=== PATIENT | male | born 1955 | race Caucasian/White ===

== ENCOUNTER 2019-11-27 13:30 | Outpatient (CLI) | payer BC, SELFPAY ==
--- NOTE | 2019-11-27 10:40 | DI.US_ITS ---
EXAM: US LOWER EXTREMITY VENOUS RT CLINICAL HISTORY: RT CALF PAIN, SWELLING X 2 WEEKS, ? DVT, ? POPLITEAL CYST TECHNIQUE: Ultrasound performed using standard protocol. COMPARISON: No exams were available for comparison FINDINGS: There is hypoechoic thrombus extending from the mid right femoral vein inferiorly through the poplite al vein and into the posterior tibialis vein. The saphenofemoral junction is unremarkable. IMPRESSION: Right lower extremity deep venous thrombus extending from the femoral vein into the posterior tibiali s vein. The findings were discussed with the primary care physician on the date of the examination.
== END 2019-11-27 13:50 ==
PROVIDERS: PCP Internal Medicine; Visit Provider Specialist/Technologist Athletic Trainer
DX: M79.661 Pain in right lower leg (principal); R22.41 Localized swelling, mass and lump, right lower limb; I82.411 Acute embolism and thrombosis of right femoral vein; I82.441 Acute embolism and thrombosis of right tibial vein
CPT/HCPCS: 93971

== ENCOUNTER 2020-01-13 09:38 | Outpatient (CLI) | payer MEDICARE, BC, SELFPAY ==
[2020-01-13 16:51] LABS: INR 1.2 Ratio (0.9-1.1); PTT (UVM) 36 secs (26-37)
[2020-01-13 17:12] LABS: D-Dimer (UVM) <200 ng/mL DDU (<=230)
[2020-01-14 09:37] LABS: Antithrombin 3, Funct. 108 % (85-125)
[2020-01-14 09:42] LABS: PSA, Screening 0.8 ng/mL (0.0-4.5)
[2020-01-15 10:42] LABS: Protein C, Functional 92 % (71-199); Protein S, Functional 144 % (73-156)
[2020-01-16 14:07] LABS: LA Cascade Summary (See Note); Silica Clotting Time 45.2 secs (30.2-48.4)
[2020-01-17 16:21] LABS: LA Confirm 60.9 secs (25.1-30.2)
[2020-01-17 16:32] LABS: LA Ratio 0.88 (<=1.16)
== END 2020-01-13 09:58 ==
PROVIDERS: PCP Internal Medicine; Visit Provider Specialist/Technologist Athletic Trainer
DX: I82.90 Acute embolism and thrombosis of unspecified vein (principal); Z12.5 Encounter for screening for malignant neoplasm of prostate
CPT/HCPCS: 36415; 81240; 81241; 84153; 85300; 85303; 85306; 85610; 85613; 85730; 85732; 86147; 85240; 85379

== ENCOUNTER 2022-10-11 18:06 | Outpatient (REF) | payer MEDICARE, BC, SELFPAY ==
[2022-10-11 15:20] LABS: Calculated LDL 148 mg/dL (<100); Cholesterol 230 mg/dL (<200); Glucose 103 mg/dL (74-106); HDL Cholesterol 66 mg/dL (40-60); Triglyceride 83 mg/dL (<150)
== END 2022-10-11 18:07 | disposition home or self-care (01) ==
LOC: NCHCN 18:06
PROVIDERS: PCP Internal Medicine; Visit Provider Family Medicine
DX: Z00.00 Encounter for general adult medical examination without abnormal findings (principal)
CPT/HCPCS: 80061; 82947

== ENCOUNTER 2024-10-09 09:56 | Outpatient (REF) | payer MEDICARE, BC, SELFPAY ==
--- OUTSIDE RECORDS SUMMARY | 2024-10-09 10:00 | XMS_ITS | Encounter Summary ---
[place] [address] Care Team Providers Care Other Sports Coach Or Instructor Name Role Phone Baldemar Oneil MD Primary Care Provider [phone] Encounter Details Date Type Department Care Team (Late st Contact Info) Description 07/16/2024 Interpretation Only [facility] in [facility] [address] [place] [address] Marilou Navas PA [address] [place] [address] Social History Tobacco Use Types Packs/Day Years Used Date Smoking Tobacco: Never Smokeless Tobacco: Never Alcohol Use Standard Drinks/Week Comments Yes 0 (1 standard drink = 0.6 oz pur e alcohol) occ Sex and Gender Information Value Date Recorded Sex Assigned at Not on file Gender Identity Not on file Sexual Orientation Not on file documented as of this encounter Plan of Treatment Not on file documented as of this encounter Procedures Procedure Name Priority Date/Time Associated Diagnosis Comments MRI LOWER EXTREMITY JOINT WO CONTRAST RIGHT Routine 07/16/2024 8:38 AM EDT documented in this encounter Results * MRI LOWER EXTREMITY JOINT WO CONTRAST RIGHT (07/16/2024 8:38 AM EDT) PT CLASS O RAD ADMITDTTM [id number] RAD PT RAD INFO [id number]^WENNBE RG^MARILOU^D RAD EXAM DESC MRLEJWOR^MR LOWER EXT ANY JOINT RT WO CONTRAST^RIS [facility] WORKSTATION ID [id number] [facility] Anatomical Region Laterality Modality Other Impressions 07/17/2024 12:26 PM EDT 1. ??Medial meniscus posterior horn partial-thickness radial tear with no meniscal extrusion. ??The lateral meniscus is intact. 2. ??Semimembranosus ganglion cysts 3. ??Grade 1 MCL sprain. 4. ??Small joint effusion 5. ??Mild patellofemoral and lateral compartments chondromalacia. 6. ??Multifocal muscle strains. Thank you for letting us participate in the care of this patient. ??If you are a health care provider and have any questions regarding this report, please contact the number below. ??For patients who have questions please contact the health pet caretaker that requested your imaging first. ? Electronically signed by: Felix Kamara MD, [facility] ([phone]), at 07/17/2024 12:26 PM Narrative 07/17/2024 12:26 PM EDT EXAMINATION: MR LOWER EXT ANY JOINT RT WO CONTRAST CLINICAL HISTORY: REASON: RIGHT KNEE PAIN, UNSPECIFIED CHRONICITY ADD'L INFO: ?? NO PA REQ TECHNIQUE: Unenhanced multisequence and multiplanar MRI examination of the right lower extremity. COMPARISON: Bilateral knee radiographs 05/28/2024. FINDINGS: ACL: Intact. ??Subcortical T2 hyperintense signal in the proximal tibia near the ACL insertion. ??Intraosseous ganglion cysts PCL: Intact MCL: Intact.Periligamentous edema of the MCL consistent with a grade 1 sprain LCL: Intact Medial Meniscus: Intact. ??There is a partial-thickness radial tear in medial meniscus posterior horn (series 15 image 11, series 8 image 16). ??No meniscal extrusion. Lateral Meniscus: Intact Extensor Mechanism: Tendons, patellofemoral retinacula and iliotibial band are intact. Posterolateral Corner: Intact Posteromedial Corner: Intact. ??Tiny Gardner cyst. ??There is a small multilobulated fluid collection intimately associated with the semimembranosus tendon myotendinous junction in keeping with a ganglion cyst measuring 16 x 4 mm (Series 8 Image 18) Bone: Intact with normal marrow signal. Cartilage: Patellofemoral: Mild chondral thinning and surface fibrillation. ?? Medial: Intact Lateral: Surface chondral fibrillation of the weightbearing articular cartilage There is low signal intensity in the tibial plateau cartilage compatible with chondral degeneration. ?? Tibiofibular: Intact Effusion: Small knee effusion. ?? Muscle: Normal bulk. ??There is feathery edema of soleus and medial head gastrocnemius, in keeping with a grade 1 strain. Neurovascular Structures: Normal course, caliber and signal. Procedure Note Felix Kamara MD - 07/17/2024 EXAMINATION: MR LOWER EXT ANY JOINT RT WO CONTRAST CLINICAL HISTORY: REASON: RIGHT KNEE PAIN, UNSPECIFIED CHRONICITY ADD'LINFO: NO PA REQ TECHNIQUE: Unenhanced multisequence and multiplanar MRI examination of the rightlower extremity. COMPARISON: Bilateral knee radiographs 05/28/2024. FINDINGS: ACL: Intact. Subcortical T2 hyperintense signal in the proximal tibianear the ACL insertion. Intraosseous ganglion cysts PCL: Intact MCL: Intact.Periligamentous edema of the MCL consistent with a grade 1sprain LCL: Intact Medial Meniscus: Intact. There is a partial-thickness radial tear inmedial meniscus posterior horn (series 15 image 11, series 8 image 16). Nomeniscal extrusion. Lateral Meniscus: Intact Extensor Mechanism: Tendons, patellofemoral retinacula and iliotibial bandare intact. Posterolateral Corner: Intact Posteromedial Corner: Intact. Tiny Gardner cyst. There is a smallmultilobulated fluid collection intimately associated with the semimembranosus tendon myotendinous junction in keeping with a ganglion cyst measuring 16 x 4mm (Series 8 Image 18) Bone: Intact with normal marrow signal. Cartilage: Patellofemoral: Mild chondral thinning and surface fibrillation. Medial: Intact Lateral: Surface chondral fibrillation of the weightbearing articularcartilage There is low signal intensity in the tibial plateau cartilage compatiblewith chondral degeneration. Tibiofibular: Intact Effusion: Small knee effusion. Muscle: Normal bulk. There is feathery edema of soleus and medial head gastrocnemius, in keeping with a grade 1 strain. Neurovascular Structures: Normal course, caliber and signal. IMPRESSION 1. Medial meniscus posterior horn partial-thickness radial tear with no meniscal extrusion. The lateral meniscus is intact. 2. Semimembranosus ganglion cysts 3. Grade 1 MCL sprain. 4. Small joint effusion 5. Mild patellofemoral and lateral compartments chondromalacia. 6. Multifocal muscle strains. Thank you for letting us participate in the care of this patient. If youare a health care provider and have any questions regarding this report,please contact the number below. For patients who have questions please contactthe health pet caretaker that requested your imaging first. Electronically signed by: Felix Kamara MD, [facility]([phone]), at 07/17/2024 12:26 PM Marilou [facility] documented in this encounter Visit Diagnoses Not on filedocumented in this encounter Care Teams Other Sports Coach Or Instructor Relationship Specialty Start Date End Date Baldemar Oneil MD [address] [place] [id number] PCP - General 09/14/10 documented as of this encounter
--- OUTSIDE RECORDS SUMMARY | 2024-10-09 10:00 | XMS_ITS | Encounter Summary ---
Author Organization [facility] Address [address] [place] [address] Care Team Providers Care Social Sciences Research Scientist Name Role Phone Baldemar Oneil MD Primary Care Provider [phone] Encounter Details Date Type Department Care Team (Late st Contact Info) Description 01/13/2020 Lab Requisition [facility] Pathology & Laboratory Medicine - [facility] [address] [place] [address] Unknown, Provider, Social History Tobacco Use Types Packs/Day Years Used Date Smoking Tobacco: Never Assessed Sex and Gender Information Value Date Recorded Sex Assigned at Not on file Legal Sex Male 17:40 EST Gender Identity Not on file Sexual Orientation Not on file documented as of this encounter Plan of Treatment Not on file documented as of this encounter Procedures Procedure Name Priority Date/Time Associated Diagnosis Comments HN LAB PATH REVIEW - COAG Today 01/13/2020 10:12 EDT LUPUS ANTICOAGULANT CASCADE Routine 01/13/2020 10:12 EDT LA CONFIRM TEST Today 01/13/2020 10:12 EDT PROTEIN S ACTIVITY Routine 01/13/2020 10 :12 EDT PHOSPHOLIPID ANTIBODY Routine 01/13/2020 10:12 EDT PTT Routine 01/13/2020 10:12 EDT PROTIME Routine 01/13/2020 10:12 EDT D-DIMER Routine 01/13/2020 10:12 EDT ANTITHROMBIN, FUNCTIONAL Routine 01/13/2020 10:12 EDT PROTEIN C ACTIVITY Routine 01/13/2020 10 :12 EDT PSA TOTAL, DIAGNOSTIC Routine 01/13/2020 10:12 EDT documented in this encounter Results * HN LAB DIFF PATH REVIEW - COAG (01/13/2020 10:12 EDT) Pathology Review Comment - Coagulation Final Interpretation: Negative for detection of lupus anticoagulant (LA). ??Where clinical suspicion for antiphospholipid syndrome is high, it may be appropriate to perform alternative LA or antiphospholipid assays. Recommendation: The laboratory criteria for Antiphospholipid Syndrome (aPS) include positive testing for one of the following on 2 or more occasions, at least 12 weeks apart: 1) Lupus anticoagulant, 2) Cardiolipin antibodies (IgG or IgM) in medium or high titer, 3) Bpeu-3-rzctfqcmjeny 1 antibodies (IgG or IgM) in medium or jorge titer. Solid phase assays for Hpup-4-lumpqkdctckh 1 (B2GP1) and Cardiolipin antibodies are also recommended. Correlation with those results is advised. There was significant resident/fellow involvement in the diagnostic evaluation of this case. By the signature below, the attending physician certifies that they have 1) personally conducted a gross and/or microscopic examination of the described specimen(s), and/or personally interpreted the results of laboratory testing of the described specimen(s), and 2) personally rendered or confirmed the above diagnosis. Rhina Merlos MD 01/16/2020 14:02 EDT [facility] Blood VENOUS BLOOD / Unknown 01/13/2020 10:12 EDT 01/13/2020 16:10 EDT us Provider Unknown HEMATOLOGY & PF4 ORDERABLES Final Result [facility] [address] [place] [address] * (ABNORMAL) LA CONFIRM TEST (01/13/2020 10:12 EDT) Dilute Juan Viper Venom Time Confirm 60.9(H) 25.1 - 30.2 secs 01/16/2020 11:50 EDT [facility] LA Ratio 0.88 <=1.16 01/16/2020 11:50 EDT [facility] Blood VENOUS BLOOD / Unknown 01/13/2020 10:12 EDT 01/13/2020 16:10 EDT us Provider Unknown HEMATOLOGY & PF4 ORDERABLES Final Result Performing Organization Address City/[facility] de Phone Number [facility] [address] [place] [address] * PSA TOTAL, DIAGNOSTIC (01/13/2020 10:12 EDT) [facility] PSA 0.8 0.0 - 4.5 ng/mL 01/14/2020 9:38 EDT [facility] Blood VENOUS BLOOD / Unknown 01/13/2020 10:12 EDT 01/13/2020 15:43 EDT Narrative [facility] - 01/14/2020 9:38 EDT NOTE: Serum PSA concentration should not be interpreted as absolute evidence for the presence or absence of malignant disease. Assayed on Siemens ADVIA Centaur XPT using chemiluminescent technology.??Values obtained by using different assay methods cannot be used interchangeably. us Provider Unknown CHEMISTRY & BLOOD GAS ORDERA BLES Final Result Performing Organization Address City/[facility]/ZIP Co de Phone Number [facility] [address] [place] [address] * PTT (01/13/2020 10:12 EDT) Pathologist [facility] PTT 36 26 - 37 secs 01/13/2020 16:47 EDT [facility] Blood VENOUS BLOOD / Unknown 01/13/2020 10:12 EDT 01/13/2020 16:10 EDT us Provider Unknown HEMATOLOGY & PF4 ORDERABLES Final Result [facility] [address] [place] [address] * (ABNORMAL) LUPUS ANTICOAGULANT CASCADE (01/13/2020 10:12 EDT) LA Sasser Summary Final Interpretation: Negative for detection of lupus anticoagulant (LA). ??Where clinical suspicion for antiphospholipid syndrome is high, it may be appropriate to perform alternative LA or antiphospholipid assays. Recommendation: The laboratory criteria for Antiphospholipid Syndrome (aPS) include positive testing for one of the following on 2 or more occasions, at least 12 weeks apart: 1) Lupus anticoagulant, 2) Cardiolipin antibodies (IgG or IgM) in medium or high titer, 3) Rchj-0-uzjkdcrpogmz 1 antibodies (IgG or IgM) in medium or jorge titer. Solid phase assays for Pzjo-4-ewscrgodkhec 1 (B2GP1) and Cardiolipin antibodies are also recommended. Correlation with those results is advised. There was significant resident/fellow involvement in the diagnostic evaluation of this case. By the signature below, the attending physician certifies that they have 1) personally conducted a gross and/or microscopic examination of the described specimen(s), and/or personally interpreted the results of laboratory testing of the described specimen(s), and 2) personally rendered or confirmed the above diagnosis. Rhina Merlos MD 01/16/2020 14:03 EDT [facility] Dilute Viper Venom 59.0(H) 27.2 - 36.9 secs 01/16/2020 14:03 EDT [facility] Silica Clotting Time 45.2 30.2 - 48.4 secs 01/16/2020 14:03 EDT [facility] Blood VENOUS BLOOD / Unknown 01/13/2020 10:12 EDT 01/13/2020 16:10 EDT us Provider Unknown HEMATOLOGY & PF4 ORDERABLES Final Result [facility] [address] [place] [address] * PROTEIN S ACTIVITY (01/13/2020 10:12 EDT) Protein S Activity 144 73 - 156 % 2019 10:36 EDT [facility] Comment: a.Acquired Protein S deficiencies are associated with vitamin K antagonists, acute thrombotic events, , vitamin K deficiency, L-aspariginase treatment and inflammatory syndrome. Deficiencies may or may not be present in liver disease and DIC. b.Results may be affected by plasma heparin levels greater than 1.6 U/mL for UFH or greater than 1.8 U/mL for LMWH. c.Results may be overestimated in the presence of direct Xa inhibitors (rivaroxaban, apixaban, edoxaban) and direct thrombin inhibitors (dabigatran, argatroban, bivalirudin). d.Acute illness and/or thrombosis may influence test results in an unpredictable manner, therefore results should be interpreted with caution in this setting. e.Age and hormonal status may affect the normal range for females. Blood VENOUS BLOOD / Unknown 01/13/2020 10:12 EDT 01/13/2020 16:10 EDT us Provider Unknown HEMATOLOGY & PF4 ORDERABLES Final Result [facility] [address] [place] [address] * PROTEIN C ACTIVITY (01/13/2020 10:12 EDT) Protein C Clot 92 71 - 199 % 01/15/2020 10:36 EDT [facility] Comment: a. Acquired Protein C deficiencies are associated with vitamin K antagonists, acute thrombotic events, vitamin K deficiency, liver disease and DIC. b. Results may be affected by plasma heparin levels greater than 1.5 U/mL for UFH and 0.8 for LMWH. c. Results may be overestimated in the presence of direct Xa inhibitors (rivaroxaban, apixaban, edoxaban) and direct thrombin inhibitors (dabigatran, argatroban, bivalirudin). d. Acute illness and/or thrombosis may influence test results in an unpredictable manner; therefore, results should be interpreted with caution in this setting. Blood VENOUS BLOOD / Unknown 01/13/2020 10:12 EDT 01/13/2020 16:10 EDT us Provider Unknown HEMATOLOGY & PF4 ORDERABLES Final Result Performing Organization Address [facility] Co de Phone Number [facility] [address] [place] [address] * (ABNORMAL) PROTIME (01/13/2020 10:12 EDT) I.N.R. 1.2(H) 0.9 - 1.1 Ratio 01/13/2020 16:47 EDT [facility] Pro Time 14.0(H) 10.3 - 13.4 secs 01/13/2020 16:47 EDT [facility] Blood VENOUS BLOOD / Unknown 01/13/2020 10:12 EDT 01/13/2020 16:10 EDT Narrative [facility] - 01/13/2020 16:47 EDT Moderate Intensity Coumadin INR = 2.0-3.0 Adjustments in anticoagulant therapy dose should be based on the INR and NOT on the Protime. us Provider Unknown HEMATOLOGY & PF4 ORDERABLES Final Result Performing Organization Address [facility] Co de Phone Number [facility] [address] [place] [address] * ANTITHROMBIN, FUNCTIONAL (01/13/2020 10:12 EDT) Antithrombin, Functional 108 85 - 125 % 01/14/2020 9:33 EDT [facility] Comment:Results may be overe stimated in the presence of DOACs such as apixaban, edoxaban, and rivaroxaban, direct thrombin inhibitors such as dabigatran, Hirudin (Refludan) and Argatroban (Novastan). Acute illness and/or thrombosis may influence test results in an unpredictable manner, therefore results should be interpreted with caution in this setting. Blood VENOUS BLOOD / Unknown 01/13/2020 10:12 EDT 01/13/2020 16:10 EDT us Provider Unknown HEMATOLOGY & PF4 ORDERABLES Final Result Performing Organization Address City/[facility]/ZIP Co de Phone Number [facility] [address] [place] [id number] * CARDIOLIPIN ANTIBODY (01/13/2020 10:12 EDT) Cardiolipin IgG 3.11 <15.00 GPL 0 12:33 EDT [facility] Comment: ?IgG Negative: ??<15.00 GPL ?Indeterminate: ??15.00 - <20.00 GPL ?Low to Medium Positive: ??20.00 - 80.00 GPL ?Strongly Positive: ??> 80.00 GPL Cardiolipin IgM 6.64 <12.50 MPL 0 12:33 EDT [facility] Comment: ?IgM Negative: ??<12.50 MPL ?Indeterminate: ??12.50 - <20.00 MPL ?Low to Medium Positive: 20.00 - 80.00 MPL ?Strongly Positive: ??>80.00 MPL Results were obtained with the [employer] QUANTA Lite MADELEINE IgG and IgM III EDOUARD kits. Cardiolipin IgG and IgM values obtained with different manufacturers' assay methods may not be used interchangeably. ??The magnitude of the reported IgG and IgM levels cannot be correlated to an endpoint titer. Blood VENOUS BLOOD / Unknown 01/13/2020 10:12 EDT 01/13/2020 15:43 EDT us Provider Unknown IMMUNOLOGY AND SEROLOGY FAM GANN Final Result [facility] [address] [place] [address] * D-DIMER (01/13/2020 10:12 EDT) D-Dimer <200 <=230 ng/mL DDU 01/13/2020 17:08 EDT [facility] Blood VENOUS BLOOD / Unknown 01/13/2020 10:12 EDT 01/13/2020 16:10 EDT Narrative [facility] - 01/13/2020 17:08 EDT Cutoff value for the exclusion of DVT and PE: 230 ng/mL D-dimer units. Any use of the age-adjusted cutoff value is a post-analytic modification of this FDA-approved test and is considered off-label use of the test result. [facility] laboratory does not have literature to support the validity of an age-adjusted cutoff for our specific assay. us Provider Unknown MD HEMATOLOGY & PF4 ORDERABLES Final Result [facility] [address] [place] [address] documented in this encounter Visit Diagnoses Not on filedocumented in this encounter Care Teams Social Sciences Research Scientist Relationship Specialty Start Date End Date Baldemar Oneil MD [address] [place] [address] PCP - General 08/02/10 documented as of this encounter
--- OUTSIDE RECORDS SUMMARY | 2024-10-09 10:00 | XMS_ITS | Encounter Summary ---
Author Organization [facility] [place] [address] Care Team Providers Care [employer]oples[employer] Functional Analyst Name Role Phone Baldemar Oneil MD Primary Care Provider [phone] Reason for Visit * Reason Onset Date Comments Appointment 10/26/2020 Encounter Details Date Type Department Care Team (Late st Contact Info) Description 10/26/2020 [place] [id number] Meron Rosales OD [facility] [place] [address] Appointment Social History Tobacco Use Types Packs/Day Years Used Date Smoking Tobacco: Never Smokeless Tobacco: Never Alcohol Use Standard Drinks/Week Comments Yes 0 (1 standard drink = 0.6 oz pur e alcohol) occ Sex and Gender Information Value Date Recorded Sex Assigned at Not on file Gender Identity Not on file Sexual Orientation Not on file documented as of this encounter Miscellaneous Notes * Telephone Encounter - Ashley Peraza - 10/26/2020 1:41 PM ESTSummary: Pt CAN/RSC Bobby to 02/26/21 Pt sent a myD-H msg saying due to Covid he wanted to CAN/RChis 10/26/20 SIL Rosales until later spring 2020. RSC to 02/26/21 per pt request. documented in this encounter Plan of Treatment Not on file documented as of this encounter Visit Diagnoses Not on filedocumented in this encounter Care Teams Peoplesoft Functional Analyst Relationship Specialty Start Date End Date Baldemar Oneil MD [address] [place] [address] PCP - General 09/14/10 documented as of this encounter
--- OUTSIDE RECORDS SUMMARY | 2024-10-09 10:00 | XMS_ITS | Encounter Summary ---
Author Organization [facility] Address [address] [place] [address] Care Team Providers Care Behavioral Therapist Name Role Phone Baldemar Oneil MD Primary Care Provider [phone] Encounter Details Date Type Department Care Team (Late st Contact Info) Description 01/13/2020 Lab Requisition [facility] Pathology & Laboratory Medicine - [facility] [address] [place] [address] Unknown, Provider, Social History Tobacco Use Types [...] Procedure Name Priority Date/Time Associated Diagnosis Comments 50/50 MIX PTT Routine 01/13/2020 10:12 EDT documented in this encounter Results * 50/50 MIX PTT (01/13/2020 10:12 EDT) CTRL 50/50 PTT 01/13/2020 16:47 EDT [facility] Comment:Test cancelled, APTT not prolonged. Mix 50/50 PTT 01/13/2020 16:47 EDT [facility] Comment:Test cancelled, APTT not prolonged. PTT 01/13/2020 16:47 EDT [facility] Comment:Test cancelled, APTT not prolonged. Blood VENOUS BLOOD / Unknown 01/13/2020 10:12 EDT 01/13/2020 16:10 EDT us Provider Unknown HEMATOLOGY & PF4 ORDERABLES Final Result [facility] [address] [place] [address] documented in this encounter Visit Diagnoses Not on filedocumented in this encounter Care Teams Behavioral Therapist Relationship Specialty Start Date End Date Baldemar Oneil MD [address] [place] [address] PCP - General 08/02/10 documented as of this encounter
--- OUTSIDE RECORDS SUMMARY | 2024-10-09 10:00 | XMS_ITS | Clinical Summary ---
Author Organization [facility] [place] [address] Care Team Providers Care Statistician Name Role Phone Baldemar Oneil MD Primary Care Provider [phone] Allergies No known active allergies Medications Medication Sig Dispensed Refills Start Date End Date Status Multivits/Iron Fum/FA/D3/Lycop (MULTI FOR HIM ORAL) Take by mouth. Active ibuprofen (ADVIL;MOTRIN) 200 mg Tablet Take 200 mg by mouth as needed for Pain. Active acetaminophen (TYLENOL 8 HOUR ORAL) Take by mouth as needed. Active apixaban (ELIQUIS ORAL) Take by mouth. Active Active Problems No known active problems Encounters Date Type Department Care Team Description 07/16/[address] [facility] in [address] [address] Marilou Navas PA from Last 3 Months Family History Medical History Relation Comments Heart Disease Brother Cancer Father Thyroid Disease Father Cataracts Mother Diabetes Son Amblyopia Neg Hx Glaucoma Neg Hx Hypertension Neg Hx Macular Degeneration Neg Hx Retinal Detachment Neg Hx Strabismus Neg Hx Relation Status Comments Brother Father Mother Son Alive Social History Tobacco Use Types Packs/Day Years Used Date Smoking Tobacco: Never Smokeless Tobacco: Never Alcohol Use Standard Drinks/Week Comments Yes 0 (1 standard drink = 0.6 oz pur e alcohol) occ Sex and Gender Information Value Date Recorded Sex Assigned at Not on file Gender Identity Not on file Sexual Orientation Not on file Plan of Treatment Health Maintenance Due Date Last Done Comments CT Colonography 1955 Colonoscopy 1955 Colorectal Cancer Screening 1955 FIT DNA 1955 FIT 1955 Sigmoidoscopy (10 year) with FIT yearly 1955 Sigmoidoscopy 1955 Hepatitis C Screening 1971 Lipid Screening 1971 Tetanus/Diphtheria/Pertussis Vaccines (1 - Tdap) 12/08 Zoster vaccine (1 of 2) 2003 Advance Directive 2008 Pneumoccocal Vaccine: 65+ (1 of 1 - PCV) 2018 Covid-19 Vaccine (1 - 2023- season) 2024 Influenza (Flu) vaccine (1 o f 1 - Influenza standard series) 06/23/2024 Procedures Procedure Name Priority Date/Time Associated Diagnosis Comments MRI LOWER EXTREMITY JOINT WO CONTRAST RIGHT Routine 07/16/2024 8:38 AM EDT from Last 3 Months Results * MRI LOWER EXTREMITY JOINT WO CONTRAST RIGHT (07/16/2024 8:38 AM EDT) PT CLASS O RAD ADMITDTTM [id number] RAD PT RAD MD INFO [id number]^WENNBE RG^MARILOU^D RAD EXAM DESC MRLEJWOR^MR LOWER EXT ANY JOINT RT WO CONTRAST^RIS [facility] WORKSTATION ID [id number] [facility] Anatomical Region Laterality Modality Other Impressions 07/17/2024 [...] who have questions please contact the health laboratory animal care veterinarian that requested your imaging first. ? Electronically signed by: Felix Kamara MD, [facility] ([phone]), at 07/17/2024 12:26 PM Narrative 07/17/2024 12:26 [...] patients who have questions please contactthe health laboratory animal care veterinarian that requested your imaging first. Electronically signed by: Felix Kamara MD, [facility]([phone]), at 07/17/2024 12:26 PM Marilou LANCASTER [facility] from Last 3 Months Care Teams Statistician Relationship Specialty Start Date End Date Baldemar Oneil MD [address] [place] [address] PCP - General 09/14/10
--- OUTSIDE RECORDS SUMMARY | 2024-10-09 10:00 | XMS_ITS | Clinical Summary ---
Author Organization [facility] Address [address] [place] [address] Care Team Providers Care Telephone Surveyor Name Role Phone Baldemar Oneil MD Primary Care Provider [phone] Social History Tobacco Use Types Packs/Day Years Used Date Smoking Tobacco: Never Assessed Sex and Gender Information Value Date Recorded Sex Assigned at Not on file Legal Sex Male 17:40 EST Gender Identity Not on file Sexual Orientation Not on file Plan of Treatment Health Maintenance Due Date Last Done Comments Hepatitis C Screen 1955 Fall Risk Screening 2018 COVID-19 Vaccine (2023-25 season) 2024 RSV Immunization ( o r 60+ Years) (1 - 1-dose 75+ series) 2028 Care Teams Telephone Surveyor Relationship Specialty Start Date End Date Baldemar Oneil MD [address] [place] [address] PCP - General 08/02/10
--- OUTSIDE RECORDS SUMMARY | 2024-10-09 10:00 | XMS_ITS | Encounter Summary ---
Author Organization [facility] [place] [address] Care Team Providers Care Land Title Examiner Name Role Phone Baldemar Oneil MD Primary Care Provider [phone] Reason for Visit * Reason Comments Eye Exam Cataract Encounter Details Date Type Department Care Team (Late st Contact Info) Description 04/06/2021 8:40 AM EDT Office [place] [address] Meron Roslaes, OD [facility] [place] [address] Combined forms of age-related cataract of both eyes; Astigmatism of both eyes with presbyopia Social History Tobacco Use Types Packs/Day Years Used Date Smoking Tobacco: Never Smokeless Tobacco: Never Alcohol Use Standard Drinks/Week Comments Yes 0 (1 standard drink = 0.6 oz pur e alcohol) occ Sex and Gender Information Value Date Recorded Sex Assigned at Not on file Gender Identity Not on file Sexual Orientation Not on file documented as of this encounter Progress Notes * Mreon Rosales, OD - 04/06/2021 8:40 AM EDT Encounter Diagnoses Name Primary? Combined forms of age-related cataract of both eyes ??? Astigmatism of both eyes with presbyopia Vic Sarah is a 65 y.o. with the following ophthalmic problems: Assessment and Plan: Cataracts OU - Monitor for now, sooner with changes in vision. Refractive Error OU - Rx given today. - Cautioned about driving! Intermittent dull pain OU and Intermittent unexplained headaches without ocular manifestations. - Consult with PCP for further evaluation. - Findings and concerns discussed with Vic and he expressed understanding. -Upon Return CEE in 1 year, sooner with changes in sx/vision. Eyeglass Final Rx Eyeglass Final Rx Sphere Cylinder [place] Dist VA Add Near VA Right -1.75 Sphere 20/25-2 +2.50 20/20-1 Left -1.00 +1.00 040 20/20 +2.50 20/20 Expiration Date: 04/07/2023 documented in this encounter Plan of Treatment Not on file documented as of this encounter Visit Diagnoses Diagnosis Combined forms of age-related cataract of both eyes Other and combined forms of senile cataract Astigmatism of both eyes with presbyopia documented in this encounter Care Teams Land Title Examiner Relationship Specialty Start Date End Date Baldemar Oneil MD [address] [place] [address] PCP - General 09/14/10 documented as of this encounter
--- OUTSIDE RECORDS SUMMARY | 2024-10-09 10:00 | XMS_ITS | Encounter Summary ---
Author Organization [facility] [place] [address] Care Team Providers Care Mechanical Engineer Name Role Phone Baldemar Oneil MD Primary Care Provider [phone] Encounter Details Date Type Department Care Team (Late st Contact Info) Description 03/01/2021 [place] [id number] Meron Rosales OD [facility] [place] [address] Social History Tobacco Use Types Packs/Day Years [...] encounter Miscellaneous Notes * Telephone Encounter - Emily Hernandez - 03/01/2021 1:44 PM EDT Pt canceled appt with SS on 02/26 LM asking about rescheduling * Telephone Encounter - Emily Hernandez - 03/01/2021 1:44 PM EDT LM for pt Will send letter * Telephone Encounter - Emily Hernandez - 03/01/2021 1:44 PM EDT Letter sent documented in this encounter Plan of Treatment Not on file documented as of this encounter Visit Diagnoses Not on filedocumented in this encounter Care Teams Mechanical Engineer Relationship Specialty Start Date End Date Baldemar Oneil MD [address] [place] [address] PCP - General 09/14/10 documented as of this encounter
--- OUTSIDE RECORDS SUMMARY | 2024-10-09 10:00 | XMS_ITS | Encounter Summary ---
Author Organization [facility] [place] [address] Care Team Providers Care Rn School Name Role Phone Baldemar Oneil MD Primary Care Provider [phone] Reason for Visit * Reason Onset Date Comments Bumped Appointment 08/18/2020 Encounter Details Date Type Department Care Team (Late st Contact Info) Description 08/18/2020 Telephone Ophthalmology [facility] [place] [id number] Meron Rosales OD [facility] [place] [address] Bumped Appointment Social History Tobacco Use Types Packs/Day [...] * Telephone Encounter - Ashley Peraza - 08/20/2020 2:51 PM EDTSummary: 2nd VM msg lft. Letter mailed. 2nd VM msg lft. Letter mailed. * Telephone Encounter - Ashley Peraza - 08/18/2020 3:02 PM EDTSummary: [facility] PRANAY MUJICA Lft msg. Pt to call to [facility] 09/03/20 PRANAY Robledovas appt for: 1 Y, for CEE. BMP 09/03/20 -Last seen 09/02/19 Offer September or October held times. documented in this encounter Plan of Treatment Not on file documented as of this encounter Visit Diagnoses Not on filedocumented in this encounter Care Teams Rn School Relationship Specialty Start Date End Date Baldemar Oneil MD [address] [place] [address] PCP - General 09/14/10 documented as of this encounter
--- OUTSIDE RECORDS SUMMARY | 2024-10-09 10:00 | XMS_ITS | Encounter Summary ---
Author Organization [facility]ly [facility] Address [facility] Martha gaitan [place] [id number] Care Team Providers Care Information Assistant Name Role Phone Baldemar Oneil MD Primary Care Provider [phone] Reason for Visit * Reason Comments Blurred Vision * Consultation (Routine) - Closed Specialty Diagnoses / Procedures Referred By Contdahiana t Referred To Contact Ophthalmology Diagnoses Unspecified cataract CATARACTS BILATERAL, BECOMING MORE VISUALLY IMPAIRING Baldemar Oneil MD [address] [place] [address] Meron Rosales, [facility] [place] [address] Referral ID Status Reason Start Date Expiration Date V isits Requested Visits Authorized [id number] Closed Consult, Test & Treat [facility] PCP Updated and/or Approved 05/03/2019 09/02/2019 1 1 Encounter Details Date Type Department Care Team (Late st Contact Info) Description 09/02/2019 2:00 PM EST Office [place] [address] Meron Rosales, [facility] [place] [address] Combined forms of age-related cataract of both [...] as of this encounter Progress Notes * Meron Rosales, OD - 09/02/2019 2:00 PM EST Encounter Diagnoses Name Primary? Combined forms of age-related cataract of both eyes ??? Astigmatism of both eyes with presbyopia Jimmy Clark is a 63 y.o. with the following ophthalmic problems: Assessment and Plan: Cataracts OU - Monitor for now, sooner with changes in vision. Refractive Error OU - Rx given today. Ed re adaptation period as Mendoza is new to eyeglass wear!! - Cautioned about driving! - Findings and concerns discussed with Vic and he expressed understanding. -Upon Return CEE in 1 year, sooner with changes in sx/vision. Eyeglass Final Rx Eyeglass Final Rx Sphere Cylinder [place] Dist VA Add Near VA Right -1.25 +0.50 175 20/20-1 +2.50 20/20 Left -0.50 +1.25 040 20/20-1 +2.50 20/20 Expiration Date: 09/02/2021 Pupillary Distance: 64 documented in this encounter Plan of Treatment Not on file documented as of this encounter Visit Diagnoses Diagnosis Combined forms of age-related cataract of both eyes Other and combined forms of senile cataract Astigmatism of both eyes with presbyopia documented in this encounter Care Teams Information Assistant Relationship Specialty Start Date End Date Baldemar Oneil MD [address] [place] [address] PCP - General 09/14/10 documented as of this encounter
--- OUTSIDE RECORDS SUMMARY | 2024-10-09 10:00 | XMS_ITS | Encounter Summary ---
[place] [address] Care Team Providers Care Biomedical Engineering Director Name Role Phone Blademar Oneil MD Primary Care Provider [phone] Encounter Details Date Type Department Care Team (Late st Contact Info) Description 05/28/2024 Interpretation Only [facility] in [facility] [address] [place] [address] Marilou Navas PA [address] [place] [address] Social History Tobacco Use Types Packs/Day Years [...] Procedure Name Priority Date/Time Associated Diagnosis Comments XR KNEE 4 OR MORE VIEWS BILAT Routine 05/28/2024 10:33 AM EDT documented in this encounter Results * XR Knee 4 or more views Bilat (05/28/2024 10:33 AM EDT) PT CLASS O RAD ADMITDTTM [id number] RAD PT RAD INFO [id number]^WENNBE RG^MARILOU^D RAD EXAM DESC [id number]^XR KNEE BILAT 4V^RIS DH RAD WORKSTATION ID [id number] [facility] Anatomical Region Laterality Modality Knee Bilateral Radiographic Roseanne ging Impressions 05/28/2024 10:44 PM EDT 1. ??Mild RIGHT knee osteoarthritis with mild interval progression from 2021 2. ??Mild LEFT knee osteoarthritis with mild progression from 2019. 3. ??Bilateral knee effusions, right greater than left, which are nonspecific. Thank you for letting us participate in the care of this patient. ??If you are a health care provider and have any questions regarding this report, please contact the number below. ??For patients who have questions please contact the health daycare manager that requested your imaging first. ? Narrative 05/28/2024 10:44 PM EDT EXAMINATION: XR KNEE BILAT 4V CLINICAL HISTORY: REASON: RIGHT KNEE PAIN, UNSPECIFIED CHRONICITY ADD'L INFO: B/L WB AP, LATERAL, SUNRISE, AND NOTCH TECHNIQUE: 4 views BILATERAL knee COMPARISON: Radiographs right knee 05/25/2022 Radiographs left knee 02/23/2020 FINDINGS: Right knee: * ??No fracture or dislocation. ?? * ??Tricompartment osteoarthritis with mild joint space narrowing, subchondral sclerosis and small osteophytosis. ??Degeneration has slightly progressed from 2021. * ??Small knee effusion, nonspecific. Left knee: * ??No fracture or dislocation * ??Tricompartment osteoarthritis with mild joint space narrowing subchondral sclerosis and small osteophytes. ??Degeneration is slightly progressed from 2019. * ??Small knee effusion, nonspecific. ?? * ??Chronic osseous remodeling of inferior patella, presumably from prior injury. * ??Calcification of proximal MCL (Silas-Stieda) Procedure Note Felix Kamara MD - 05/28/2024 EXAMINATION: XR KNEE BILAT 4V CLINICAL HISTORY: REASON: RIGHT KNEE PAIN, UNSPECIFIED CHRONICITY ADD'LINFO: B/L WB AP, LATERAL, SUNRISE, AND NOTCH TECHNIQUE: 4 views BILATERAL knee COMPARISON: Radiographs right knee 05/25/2022 Radiographs left knee 02/23/2020 FINDINGS: Right knee: * No fracture or dislocation. * Tricompartment osteoarthritis with mild joint space narrowing,subchondral sclerosis and small osteophytosis. Degeneration has slightly progressedfrom 2021. * Small knee effusion, nonspecific. Left knee: * No fracture or dislocation * Tricompartment osteoarthritis with mild joint space narrowingsubchondral sclerosis and small osteophytes. Degeneration is slightly progressed [id number]. * Small knee effusion, nonspecific. * Chronic osseous remodeling of inferior patella, presumably from priorinjury. * Calcification of proximal MCL (Silas-Stieda) IMPRESSION 1. Mild RIGHT knee osteoarthritis with mild interval progression [id number] 2. Mild LEFT knee osteoarthritis with mild progression from 2019. 3. Bilateral knee effusions, right greater than left, which arenonspecific. Thank you for letting us participate in the care of this patient. If youare a health care provider and have any questions regarding this report,please contact the number below. For patients who have questions please contactthe health daycare manager that requested your imaging first. Marilou LANCASTER IMG DX ORDERABLES documented in this encounter Visit Diagnoses Not on filedocumented in this encounter Care Teams Biomedical Engineering Director Relationship Specialty Start Date End Date Baldemar Oneil MD [address] [place] [address] PCP - General 09/14/10 documented as of this encounter
--- OUTSIDE RECORDS SUMMARY | 2024-10-09 10:00 | XMS_ITS | Referral Summary ---
Author Organization [facility] Address [address] [place] [address] Care Team Providers Care Probation Worker Name Role Phone Baldemar Oneil MD Primary Care Provider [phone] Social History Tobacco Use Types Packs/Day Years Used Date Smoking Tobacco: Never Assessed Sex and Gender Information Value Date Recorded Sex Assigned at Not on file Legal Sex Male 17:40 EST Gender Identity Not on file Sexual Orientation Not on file Plan of Treatment Not on file Care Teams Probation Worker Relationship Specialty Start Date End Date Baldemar Oneil MD [address] [place] [address] PCP - General 08/02/10
--- OUTSIDE RECORDS SUMMARY | 2024-10-09 10:01 | XMS_ITS | Encounter Summary ---
Author Organization [facility] Address [address] [place] [address] Care Team Providers Care Iron Bender Name Role Phone Unknown, Provider Primary Care Provider Unava ilable Encounter Details Date Type Department Care Team (Late st Contact Info) Description 07/29/2010 Results Only [facility] Services - [facility] [place] [place] [address] [place], [place] [id number] Devin Esteves MD [address] [place] [address] Social History Tobacco Use Types Packs/Day Years [...] Procedure Name Priority Date/Time Associated Diagnosis Comments SURGICAL PATHOLOGY Routine 07/29/2010 0:00 EDT documented in this encounter Results * SURGICAL PATHOLOGY (07/29/2010 0:00 EDT) Pathology Report: SURGICAL PATHOLOGY REPORT ? Reports generated via electronic interface contain original data; ? however they are lacking the format of the original report. ? Caution should be taken when reading/interpreti ng unformatted reports. ? Name: ? NANCI, VIC Patel ? Accession #: ? [id number] ? : ? 1955 (Age: 54) ??M ? Collect Date: ? 07/29/2010 ? Location: ? [facility] ? Receive Date: ? 07/29/2010 ? Provider: DEVIN ESTEVES MD ? Copy to: MARLEY TADEO MD ? Final Pathologic Diagnosis: ? Skin of scalp, excision: ? - Seborrheic keratosis, pigmented. ? Microscopic Description: ? The stratum corneum is thickened by compact and basketweave orthokeratosis with formation of horn pseudocysts. ??The epidermis is acanthotic with formation of broad and anastomosing trabeculae. ??The trabeculae are composed of basaloid ?? keratinocytes with round uniform nuclei. ??The keratinocytes have a variable ? amount of melanin pigment. ??(Dr. Zhao)/[facility] ? Document reviewed and electronically signed by: ? DANYEL HARE MD ? Report ??Date: 08/02/2010 13:12 ? By the signature above, the attending physician certifies that he/she has ? personally conducted a gross and/or microscopic examination of the described ? specimens and rendered or confirmed the above diagnosis. ? Specimen(s) Received: ? [place] shaped scalp nevus ? Clinical History: ? [place] shaped nevus & H/O sunburns; ? atypical ? Gross Description: ? Received in formalin labelled Vic Sarah and crescent shaped scalp ?? nevus ? atypical is an unoriented elliptical excision of champagne skin measuring 1.8 x 0.8 cm and is excised to a depth of 0.4 cm. ??There is a central, slightly ? raised, smooth, champagne to dark brown, variegated papule measuring 0.5 cm in ? diameter and 0.1 cm in thickness. ??The margins are inked black. ??The specimen is serially sectioned and entirely submitted as (A1) and (A2) central sections and (A3) tips, reverse en face. (Stevan Alarcon)/[facility] ? End of Report ? [facility] 07/29/2010 07/29/2010 12: 22 EDT us Devin Esteves MD PATHOLOGY ORDERABLES Final Resul t [facility] [address] [place] [address] documented in this encounter Visit Diagnoses Not on filedocumented in this encounter Care Teams Iron Bender Relationship Specialty Start Date End Date Unknown, Provider, PCP - General 07/30/10 08/01/10 documented as of this encounter
--- OUTSIDE RECORDS SUMMARY | 2024-10-09 10:02 | XMS_ITS ---
Author Organization Unknown Address [address] [place] [phone] Phone Care Team Providers Care Nailing Machine Feeder Name Role Phone ALISHA Thomas Attending Unavailable MARIN Gomez Primary Unavailable Social History Type Status Start Date End Date Code Code Syst em Smoking History Never smoker (Never Smoked) [id number] SNOMED CT Sex Male Hospital Discharge Instructions Should you have any questions prior to discharge, please contact a member of your healthcare team. If you have left the hospital and have any questions, please contact your primary care physician. Reason For Referral No Data Found Plan of Treatment MRI LOWER EXT JOINT W/O CONTRAST 2023 Encounters Encounter Diagnosis Start Date Code Code Sys tem Idiopathic osteoarthritis 06/01/2022 [id number] SN OMED-CT Personal Care Team Section Performer Name Performer Role Active Date Inactive Da sumit
--- OUTSIDE RECORDS SUMMARY | 2024-10-09 10:02 | XMS_ITS ---
Author Organization Unknown Address [address] [place] [phone] Phone Care Team Providers Care Digital Imaging Specialist Name Role Phone ALISHA Thomas Attending Unavailable MARIN Gomez Primary Unavailable Results XR KNEE 4V RT* - Completed: 05/25/2022 10:11 LOINC: RIGHT KNEE - 4 VIEWS: No henri ors. There is mild periarticular spurring in the lateral femoral tibial and the patellofemoral joint. The joint spaces are otherwise well maintained. The bones are intact and normally mineralized. No joint effusion is seen. The soft tissues are unremarkable. IMPRESSION:Mild degenerative changes of the knee. Dictated by: RAYO REGALADO MD Transcribed by: ROMARIO 05/31/22/06:53 D Wednesday, May 25, 2022 10:27:09 AM [id number] Electronically Reviewed and Signed By: DEANA REGALADO MD 07/04/22 14:10 Copy for: [facility] Social History Type Status Start Date End Date Code Code Syst em Smoking History Never smoker (Never Smoked) [id number] SNOMED CT Sex Male Hospital Discharge Instructions [...] Date Code Code Sys tem Idiopathic osteoarthritis 05/25/2022 [id number] SN OMED-CT Personal Care Team Section Performer Name Performer Role Active Date Inactive Da te
--- OUTSIDE RECORDS SUMMARY | 2024-10-09 10:02 | XMS_ITS ---
Author Organization Unknown Address [address] [place] [phone] Phone Care Team Providers Care Granite Fabricator Name Role Phone ALISHA Thomsa Attending Unavailable MARIN Gomez Primary Unavailable Social History Type Status Start Date End Date Code Code Syst em Smoking History Never smoker (Never Smoked) [id number] SNOMED CT Sex Male Hospital Discharge Instructions [...] Date Code Code Sys tem Idiopathic osteoarthritis 07/20/2023 [id number] SN OMED-CT Personal Care Team Section Performer Name Performer Role Active Date Inactive Da sumit
--- OUTSIDE RECORDS SUMMARY | 2024-10-09 10:03 | XMS_ITS ---
Author Organization Unknown Address [address] [place] [phone] Phone Care Team Providers Care Airplane And Engine Inspector Name Role Phone ALISHA Thomas Attending Unavailable MARIN Gomez Primary Unavailable Social History Type Status Start Date End Date Code Code Syst em Smoking History Never smoker (Never Smoked) 714302118 SNOMED CT Sex Male Hospital Discharge Instructions [...] Date Code Code Sys tem Idiopathic osteoarthritis 05/21/2024 562578093 SN OMED-CT Personal Care Team Section Performer Name Performer Role Active Date Inactive Da sumit
--- OUTSIDE RECORDS SUMMARY | 2024-10-09 10:03 | XMS_ITS ---
Author Organization Unknown Address [address] [place] [address] [phone] Phone Care Team Providers Care Desizing Machine Offbearer Name Role Phone ALISHA Thomas Attending Unavailable MARIN Gomez Primary Unavailable Social History Type Status Start Date End Date Code Code Syst em Smoking History Never smoker (Never Smoked) [id number] SNOMED CT Sex Male Hospital Discharge Instructions [...] Date Code Code Sys tem Idiopathic osteoarthritis 06/04/2024 [id number] SN OMED-CT Personal Care Team Section Performer Name Performer Role Active Date Inactive Da sumit
--- OUTSIDE RECORDS SUMMARY | 2024-10-09 10:03 | XMS_ITS ---
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 Patient Name: ARMEN CHRISTINE MRN: Sex: : Age: [id number] M 1955 68 Account: Accession: Admit: StayType: [id number] 05/28/2024 O Ordered: Order ID: Submitted: Ordering Provider: 05/28/2024 10:12 [id number] JOSE BRITO Completed: Technologist: Resulted: 05/28/2024 10:15 05/28/2024 22:44 EXAMINATION: XR KNEE BILAT 4V CLINICAL HISTORY: REASON: RIGHT KNEE PAIN, UNSPECIFIED CHRONICITY ADD'L INFO: B/L WB AP, LATERAL, SUNRISE, AND NOTCH TECHNIQUE: 4 views BILATERAL knee COMPARISON: Radiographs right knee 05/25/2022 Radiographs left knee 02/23/2020 FINDINGS: Right knee: * No fracture or dislocation. * Tricompartment osteoarthritis with mild joint space narrowing, subchondral sclerosis and small osteophytosis. Degeneration has slightly progressed from 2021. * Small knee effusion, nonspecific. Left knee: * No fracture or dislocation * Tricompartment osteoarthritis with mild joint space narrowing subchondral sclerosis and small osteophytes. Degeneration is slightly progressed from 2019. * Small knee effusion, nonspecific. * Chronic osseous remodeling of inferior patella, presumably from prior injury. * Calcification of proximal MCL (Silas-Stieda) IMPRESSION: 1. Mild RIGHT knee osteoarthritis with mild interval progression from 2021 2. Mild LEFT knee osteoarthritis with mild progression from 2019. 3. Bilateral knee effusions, right greater than left, which are nonspecific. Thank you for letting us participate in the care of this patient. If you are a health care provider and have any questions regarding this report, please contact the number below. For patients who have questions please contact the health farm or ranch animal caretaker that requested your imaging first. Social History Type Status Start Date End Date Code Code Syst em Smoking History Never smoker (Never Smoked) [id number] SNOMED CT Sex Male Hospital Discharge Instructions [...] Date Code Code Sys tem Idiopathic osteoarthritis 05/28/2024 [id number] SN OMED-CT Personal Care Team Section Performer Name Performer Role Active Date Inactive Da te
--- OUTSIDE RECORDS SUMMARY | 2024-10-09 10:03 | XMS_ITS ---
Author Organization Unknown Address [address] [place] [address] [phone] Phone Care Team Providers Care Systems Support Officer Name Role Phone ALISHA Thomas Attending Unavailable MARIN Gomez Primary Unavailable Social History Type Status Start Date End Date Code Code Syst em Smoking History Never smoker (Never Smoked) [id number] SNOMED CT Sex Male Hospital Discharge Instructions [...] Date Code Code Sys tem Idiopathic osteoarthritis 07/27/2023 [id number] SN OMED-CT Personal Care Team Section Performer Name Performer Role Active Date Inactive Da sumit
--- OUTSIDE RECORDS SUMMARY | 2024-10-09 10:04 | XMS_ITS ---
Author Organization Unknown Address [address] [place] [address] [phone] Phone Care Team Providers Care Assistant News Director Name Role Phone ALISHA Thomas Attending Unavailable MARIN Gomez Primary Unavailable Social History Type Status Start Date End Date Code Code Syst em Smoking History Never smoker (Never Smoked) [id number] SNOMED CT Sex Male Hospital Discharge Instructions [...] Diagnosis Start Date Code Code Sys tem 07/25/2024 [id number] SNOMED-CT Personal Care Team Section Performer Name Performer Role Active Date Inactive Da te
--- OUTSIDE RECORDS SUMMARY | 2024-10-09 10:04 | XMS_ITS ---
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 COMPARISON: Bilateral knee radiographs 05/28/2024. FINDINGS: ACL: Intact. Subcortical T2 hyperintense signal in the proximal tibia near the ACL insertion. Intraosseous ganglion cysts PCL: Intact MCL: Intact.Periligamentous edema of the MCL consistent with a grade 1 sprain LCL: Intact Medial Meniscus: Intact. There is a partial-thickness radial tear in medial meniscus posterior horn (series 15 image 11, series 8 image 16). No meniscal extrusion. Lateral Meniscus: Intact Extensor Mechanism: Tendons, patellofemoral retinacula and iliotibial band are intact. Posterolateral Corner: Intact Posteromedial Corner: Intact. Tiny Gardner cyst. There is a small multilobulated fluid collection intimately [...] tibial plateau cartilage compatible with chondral degeneration. Tibiofibular: Intact Effusion: Small knee effusion. Muscle: Normal bulk. There is feathery edema of soleus and medial head gastrocnemius, in keeping with a grade 1 strain. Neurovascular Structures: Normal course, caliber and signal. IMPRESSION: 1. Medial meniscus posterior horn partial-thickness radial [...] who have questions please contact the health child care worker that requested your imaging first. Electronically signed by: Felix Kamara MD [facility] ([phone]), at 07/17/2024 12:26 PM Social History Type Status Start Date End Date Code Code Syst em Smoking History Never smoker (Never Smoked) [id number] SNOMED CT Sex Male Hospital Discharge Instructions [...] Diagnosis Start Date Code Code Sys tem Derangement of posterior hor n of medial meniscus of right knee 07/16/2024 [id number] SNOMED-CT Personal Care Team Section Performer Name Performer Role Active Date Inactive Da te
--- OUTSIDE RECORDS SUMMARY | 2024-10-09 10:04 | XMS_ITS ---
Author Organization Unknown Address [address] [place] [address] [phone] Phone Care Team Providers Care Database Admin Name Role Phone MAI Begum Attending Unavailable MARIN Gomez Primary Unavailable Social History Type Status Start Date End Date Code Code Syst em Smoking History Never smoker (Never Smoked) 617904164 SNOMED CT Sex Male Hospital Discharge Instructions [...] n of medial meniscus of right knee 08/29/2024 [id number] SNOMED-CT Personal Care Team Section Performer Name Performer Role Active Date Inactive Da sumit
--- OUTSIDE RECORDS SUMMARY | 2024-10-09 10:05 | XMS_ITS ---
Author Organization Unknown Address [address] [place] [address] [phone] Phone Care Team Providers Care Director Post Name Role Phone ALISHA LANCASTER Attending Unavailable CARLYLE Cardenas Primary Unavailable Social History Type Status Start Date End Date Code Code Syst em Smoking History Never smoker (Never Smoked) 113441508 SNOMED CT Smoking History Unknown if ever smoked [id number] Sex Male Hospital Discharge Instructions Should you have any questions prior to discharge, please contact a member of your healthcare team. If you have left the hospital and have any questions, please contact your primary care physician. Reason For Referral No Data Found Procedures Procedure Name Date Status Code Code Syste m Arthrocentesis Aspir&/Inj Ma alejandra Jt/Bursa w/o US 07/22/2021 completed CPT Plan of Treatment MRI LOWER EXT JOINT W/O CONTRAST 2023 Encounters Encounter Diagnosis Start Date Code Code Sys tem Unilateral primary osteoarthritis, left knee SNOMED-CT Personal Care Team Section Performer Name Performer Role Active Date Inactive Da sumit
[2024-10-09 15:47] LABS: Anion Gap 9.1 mmol/L (3-11); BUN 17 mg/dL (7-18); CO2 25.9 mmol/L (21.0-32.0); CREATININE 1.1 mg/dL (0.70-1.30); Chloride 108 mmol/L (98-107); Estimated GFR 72.22 (mL/min/1.73m2); Glucose 103 mg/dL (74-106); LDL CHOLESTEROL 131 mg/dL (<100); Potassium 4.4 mmol/L (3.5-5.1); Sodium 143 mmol/L (136-145)
== END 2024-10-09 09:57 | disposition home or self-care (01) ==
LOC: NCHCN 09:56
PROVIDERS: PCP Family Medicine; Visit Provider Family Medicine
DX: E78.5 Hyperlipidemia, unspecified (principal)
CPT/HCPCS: 80048; 83721

== ENCOUNTER 2024-12-06 08:17 | Day surgery (SDC) | payer MEDICARE, BC, SELFPAY ==
[2024-12-06] MEDS: Tropicam./Phenyleph. (1/2.5%) 5 ML BTL OD ×3 (08:51→09:03)
[2024-12-06 08:53] VITALS: BP 122/87; PULSE 56; RESP 16; TEMP 36.2; O2SAT 98
--- NOTE | 2024-12-06 09:24 | W.ANESPRE ---
General Info Date of Service Date Performed: 12/06/24 Height: 6 ft Weight: 86 kg Body Mass Index (BMI): 25.7 Surgical Procedure: Operation Date: 12/06/24 09:55 Proposed Procedure Side Surgeon p Cataract Extraction with IOL Implant Right Reji Swartz MD Meds Allergies and Home Medications Allergies Allergy/AdvReac Type Severity Reaction Status Date / Time No Known Allergies Allergy Verified 12/06/24 08:45 Home Medication ?Medication ?Instructions ?Recorded multivitamin 1 cap PO DAILY 11/27/17 glucosamine sulfate 500 mg tablet 500 mg PO DAILY 12/03/24 (Cidatrine (glucosamine)) warfarin 5 mg tablet 2.5 mg PO HS 12/03/24 Current Visit Medications: Current Medications Generic Name Dose Route Start Last Admin Trade Name Freq PRN Reason Stop Dose Admin Acetaminophen 1,000 mg 12/06/24 06:00 Acetaminophen 500 Mg Tab PO 01/05/25 05:59 Q4H PRN PRN Balanced Salt Solution 500 ml 12/06/24 06:00 Balanced Salt Soln.-Plus 500 Ml Bag OP 01/05/25 05:59 DIRECTED BUTCH Miscellaneous Medication 0 ml 12/06/24 06:00 Prednisolone 1%, Moxifloxacin 0.5%, Bromfenac 0.09% 5.6ml Btl OD 01/05/25 05:59 DIRECTED BUTCH Miscellaneous Medication 0 ml 12/06/24 06:00 12/06/24 09:03 Tropicam./Phenyleph. (1/2.5%) 5 Ml Btl OD 01/05/25 05:59 1 drp DIRECTED BUTCH Administration Tetracaine HCl 0 ml 12/06/24 06:00 Tetracaine 0.5% 4 Ml Btl OD 01/05/25 05:59 DIRECTED BUTCH PFSH Active Problems Active Problems: Problem Status Onset Code Nuclear age-related cataract, right eye Acute H25.11 Medical History Medical History Seborrheic keratoses Greater trochanteric pain syndrome Sensorineural hearing loss Dupuytren disease of palm Osteoarthritis Sleep pattern disturbance Benign prostatic hyperplasia Hyperlipemia DVT (deep venous thrombosis) 2020 Meniscus, medial, derangement Surgical History Surgical History Repair of inguinal hernia Colonoscopy - MAC (11/27/17) Tobacco Smoking/Tobacco Use Status: Never Alcohol Alcohol Intake: current Alcohol intake frequency: 0-2 drinks per day Alcohol type: wine Substance Use Substance use: Never Substance use type: does not use Vital Signs and Lab Results Vital Signs Most Recent Vital Signs in EMR: Most Recent Vital Signs Temp Pulse Resp BP Pulse Ox 36.2 C L 56 L 16 122/87 98 12/06/24 08:53 12/06/24 08:53 12/06/24 08:53 12/06/24 08:53 12/06/24 08:53 Lab Results Blood Type / Crossmatch: No Data to Display Complete Blood Count: No Data to Display Complete Metabolic Panel: No Data to Display Liver Function Panel: No Data to Display Coagulation Panel: No Data to Display Cardiac Panel: No Data to Display Arterial Blood Gas: No Data to Display Venous Blood Gas: No Data to Display Pancreas Panel: No Data to Display Thyroid Panel: No Data to Display Infectious Disease: No Data to Display Blood Cultures: No Data to Display Toxicology Panel: No Data to Display Anesthesia Assessment and Plan Anesthesia History Personal History: No History of Anesthesia Complications Family History: No Family History of Anesthesia Complications Exercise Tolerance Exercise Tolerance: Metabolic Equivalents>4 Pertinent Negatives Pertinent Negatives: No Symptoms of GERD and No Major Pulmonary Symptoms or Complaints Cardiac & Pulmonary Exam Cardiac Exam: Normal S1/S2 Heart Sounds Pulmonary Exam: Clear Bilateral Breath Sounds Implantable Cardiac Device Does patient have a Pacemaker or an ICD?: No Airway Exam Known Difficult Airway: No Mallampati Class: 2 Mouth Opening: Normal (> 3cm) Thyromental Distance: Greater than 3 cm Neck Range of Motion: Full ROM Neck Circumference: Normal Teeth Condition: Normal Dentition ASA Classification ASA Score: ASA 3 Emergency Case?: No NPO Status NPO Status: NPO Clears >2 hours, Solids >8 hours Anesthesia Plan Resuscitation Status: Full Code Anesthesia Technique: MAC Anesthesia Airway Planned: Natural Airway Monitors Used: Standard Monitors
[2024-12-06 10:11] VITALS: BMI 25.7
[2024-12-06] MEDS: Duovisc Viscoelastic System EACH 1 EACH ×2 (10:26→10:50)
[2024-12-06] MEDS: Lidocaine 1% Pres-Free 5 ML VIAL (10:27)
[2024-12-06] MEDS: Moxifloxacin-PF 1 MG/ML VIAL (10:27)
[2024-12-06] MEDS: Phenylephrine/Lidocaine (15/10) MG/ML 1 ML VIAL (10:28)
[2024-12-06] MEDS: Povidone-Iodine Ophth 30 ML BTL (10:28)
[2024-12-06] MEDS: Balanced Salt Soln.-PLUS 500 ML BAG OP (10:29)
[2024-12-06] MEDS: Prednisolone 1%, Moxifloxacin 0.5%, Bromfenac 0.09% 5.6ML BTL OD (10:29)
[2024-12-06] MEDS: Tetracaine 0.5% 4 ML BTL OD (10:30)
[2024-12-06 10:56] VITALS: BP 143/90; PULSE 57; RESP 16; TEMP 36.7; O2SAT 98
--- NOTE | 2024-12-06 10:58 | W.PM.DSUDISC ---
Date of service: 12/06/24 Discharge Plan Disposition Patient Disposition: Home Discharge Details Attending Provider: Reji Swartz Primary Care Provider: Humberto Baum Home Meds and New Rx's Prescriptions: No Action multivitamin 1 EACH capsule 1 cap PO DAILY warfarin 5 mg tablet 2.5 mg PO HS Patient Comments: TAKE 1 TABLET BY MOUTH EVERY DAY glucosamine sulfate [Cidatrine (glucosamine)] 500 mg tablet 500 mg PO DAILY Rx Instructions: administer with a meal Discharge Instructions Stand Alone Forms: DSU Post-Op Cataract, Ifrah Reyna (DSU) Discharge Orders Discharge Orders: Discharge Order (Routine); Ordered 12/06/24 Ordered By: Reji Swartz DS: Diagnosis Discharge Diagnosis (1) Nuclear age-related cataract, right eye: Status: Resolved
--- NOTE | 2024-12-06 10:58 | W.PM.OP ---
Operative Note Operative Note PRE-OP DIAGNOSIS: Nuclear cataract, right eye POST-OP DIAGNOSIS: same PROCEDURE: Cataract extraction using phacoemulsification with intraocular lens implant, right eye SURGEON: Reji Swartz ANESTHESIA TYPE: Local By Surgeon and MAC Refer to Anesthesia Record ESTIMATED BLOOD LOSS: 0 PATHOLOGY: none sent COMPLICATIONS: None Patient was transported to: same day Patient's condition: stable Implants: Lowell Clareon [id number] Indications: Progressive decreased vision due to cataract, right eye Procedure Description: CATARACT SURGERY OPERATIVE REPORT PREOPERATIVE DIAGNOSIS: Nuclear cataract, right eye POSTOPERATIVE DIAGNOSIS: Same OPERATION: Cataract extraction using phacoemulsification with posterior chamber intraocular lens implant, right eye. IOL: IOL Associate Professor Of Archaeology/Model: Lowell Clareon [id number] IOL Power: + 19.5 diopters IOL Serial Number: [id number] Optic Diameter: 6.0mm Haptic/Overall Diameter: 13.0mm PHACO INFO: Lowell Centurion Vision System with OZil and Active Fluidics Cumulative Dispersed Energy (CDE): 15.45 seconds SURGEON: Reji Swartz MD, JOVANNY ANESTHESIA: Monitored Anesthesia Care (MAC), with local sub-tenon's anesthetic infiltration COMPLICATIONS: None SPECIMENS: None INDICATIONS FOR PROCEDURE: The patient is a 68-year-old male with history of diminished visual acuity in his right eye secondary to the development of nuclear cataract. He is significantly symptomatic that he desires cataract surgery in attempt to improve and maximize his vision. The option of cataract surgery was offered to the patient and he wished to proceed. See office notes for detailed information. PROCEDURE: The correct surgical eye was identified and marked as the right eye and the pupil was dilated in the preoperative area using mydriatics and cycloplegics. The dilated pupil size was 7.0 mm. The patient elected to proceed without oral sedation. The patient was brought to the operating room where cardiopulmonary monitoring was instituted and surgical time-out was performed, confirming the correct operative eye and IOL power. Topical anesthesia was administered and ophthalmic povidone-iodine 5% was instilled into the conjunctival fornices. The tuan-ocular area was prepped with Betadine 10% solution and draped in the usual sterile fashion for intraocular surgery, including an aperture drape. A Tegaderm transparent film dressing was cut in half and used to cover the lashes and lid margins. Care was taken to sequester the lashes and lid margins under the Tegaderm dressing. A lid speculum was placed between the lids of the operative eye and the Lowell LuxOR Revalia operating microscope was maneuvered into position. Nadia scissors were then used to make a conjunctival buttonhole approximately 6mm posterior to the limbus in the inferonasal quadrant. Blunt dissection was carried out to expose bare sclera, and a blunt-tipped sub-tenon?s anesthesia cannula was introduced and passed posteriorly along the globe where non-preserved plain lidocaine was injected into posterior sub-Tenon?s space. A sideport knife was used to make a paracentesis port. Intraocular phenylephrine/lidocaine was injected into the anterior chamber. The anterior chamber was then filled with viscoelastic. A keratome knife was used to construct a two--plane clear corneal tunnel extending 2.0mm into clear cornea. A flap was raised on the anterior capsule and capsulorhexis forceps were used to complete a continuous curvilinear capsulorhexis of 5.5 mm. Balanced salt solution was then used to perform cortical cleaving hydrodissection and nuclear hydrodelineation until the lens could be freely rotated within the capsular bag. The lens nucleus was then disassembled and removed within the capsular bag and iris plane using phacoemulsification. Residual cortical material was removed using the I/A handpiece. The posterior capsule was carefully polished to remove as much residual lens epithelial cells as safely possible. The capsular bag was then inflated and the anterior chamber deepened with cohesive viscoelastic. The lens implant described above was inserted into the capsular bag using the Lowell Autonome Injector,, but upon withdrawal of the injector, the trailing haptic was noted to be broken. The lens implant was then repositioned into the anterior chamber, and additional dispersive viscoelastic was placed anterior and posterior to the IOL. A second IOL of the same power was then injected into the capsular bag behind the damaged IOL and dialed into the capsular bag. The corneal incision was enlarged slightly, and the damaged intraocular lens was then grasped with 0.12 forceps and a katherine nucleus manipulator was then placed anterior to the intraocular lens to protect the corneal endothelium. The twist and out technique was then used to remove the damaged IOL without difficulty.. . Residual viscoelastic was then removed first from posterior to the IOL, then from the anterior chamber using the I/A handpiece. The lens implant was noted to center nicely within the capsular bag. The incisions were stromally hydrated, and the anterior chamber was reformed using BSS. Then 0.5cc of moxifloxacin 1.0mg/ml were injected into the capsular bag and anterior chamber. The incisions were checked with a Weck spear and found to be secure. Several drops of ophthalmic povidone-iodine 5% were then applied to the eye followed by two drops of combination steroid/NSAID/antibiotic solution. The drapes were removed and a clear plastic protective eye shield was placed over the eye. The patient was then returned to Same Day Surgery in stable condition. Date of Procedure: 12/06/24
--- NOTE | 2024-12-06 11:08 | W.ANESPOSTOP ---
Postoperative Evaluation Date, Time and Location Date Performed: 12/06/24 Time Performed: 11:00 Patient Location: Day Surgery Unit Vital Signs Most Recent Imported Vital Signs: Most Recent Vital Signs Temp Pulse Resp BP Pulse Ox 36.7 C 57 L 16 143/90 H 98 12/06/24 10:56 12/06/24 10:56 12/06/24 10:56 12/06/24 10:56 12/06/24 10:56 Pain Score Most Recent Pain Score: Most Recent Pain Score Pain Level 0 12/06/24 10:56 Assessment Mental Status: Awake (Alert & Oriented to Patient Baseline) Airway and Respiratory Function: Patent airway with normal (patient baseline) respiratory exam Cardiovascular Function: Hemodynamically Stable Hydration Status: Adequately Hydrated Nausea & Vomiting: No Nausea or Vomiting Pain: Pt. Denies Any Pain Peripheral Nerve Block: Patient did not receive a nerve block
== END 2024-12-06 11:24 | disposition home or self-care (01) ==
LOC: SUR 08:17
PROVIDERS: PCP Family Medicine; Visit Provider Ophthalmology
PROC: (CPT 66984; principal; 2024-12-06 09:45)
DX: H25.11 Age-related nuclear cataract, right eye (principal)
CPT/HCPCS: 66984; 00123; V2632; J2003

== ENCOUNTER 2025-10-02 10:59 | Outpatient (REF) | payer MEDICARE, BC, SELFPAY ==
[2025-10-02 15:26] LABS: HCT 44.7 % (40.0-50.0); HGB 15.1 g/dL (13.5-17.5); MCH 31.1 pg (27.0-33.0); MCHC 33.8 % (32.0-36.0); MCV 92 fL (80-95); MPV 9.9 fL (8.0-11.0); Platelet Count 270 10^3/uL (130-400); RBC 4.86 10^6/uL (4.36-5.78); RDW 12.3 % (11.8-14.1); RDW-SD 41.5 fL; WBC 4.38 10^3/uL (4.4-10.8)
[2025-10-02 15:46] LABS: Anion Gap 7 mmol/L (3-11); BUN 15 mg/dL (9-23); CO2 28.0 mmol/L (20.0-31.0); Calcium 9.8 mg/dL (8.3-10.6); Chloride 107 mmol/L (98-107); Cholesterol 219 mg/dL (<200); Glucose 94 mg/dL (74-106); HDL Cholesterol 56 mg/dL (>40); Potassium 4.7 mmol/L (3.5-5.1); Sodium 142 mmol/L (136-145)
== END 2025-10-02 11:00 | disposition home or self-care (01) ==
LOC: NCHCN 10:59
PROVIDERS: PCP Family Medicine; Visit Provider Family Medicine
DX: Z00.00 Encounter for general adult medical examination without abnormal findings (principal)
CPT/HCPCS: 80048; 80061; 85027